=== PATIENT | female | born 1995 | race Caucasian/White ===

== ENCOUNTER 2017-12-19 21:20 | Emergency (ER) | payer BC ==
--- NOTE | 2017-12-19 21:32 | EDPHY ---
H & P Stated Complaint: fall earlier now ADAN Time Seen by Provider: 12/19/17 21:32 HPI/ROS: HPI CHIEF COMPLAINT: Headache, hit head HISTORY OF PRESENT ILLNESS: 22-year-old female, otherwise healthy denies any significant medical history presents emergency room with a global headache. Patient states she was at work today she bent over to pick something up and when she stood up hit the back of her head on a desk. Specifically she has been nauseous, she did have an episode of vomiting at home. Complains of a global throbbing headache. Denies neck pain. Denies blurry vision or double vision. Denies chest pain or shortness of breath. No fever. She has not take anything for pain. Past Medical History: Denies significant medical history Past Surgical History: Denies significant surgical history Social History: Denies daily use drugs alcohol tobacco. Family History: Noncontributory ROS REVIEW OF SYSTEMS: 10 Systems were reviewed and negative with the exception of the elements mentioned in the history of present illness. Exam Constitutional appears well nontoxic no acute distress triage nursing summary reviewed, vital signs reviewed, awake/alert. Eyes normal conjunctivae and sclera, EOMI, PERRLA. HENT normal inspection, atraumatic, moist mucus membranes, no epistaxis, neck supple/ no meningismus, no raccoon eyes. Respiratory clear to auscultation bilaterally, normal breath sounds, no respiratory distress, no wheezing. Cardiovascular rate normal, regular rhythm, no murmur, no edema, distal pulses normal. Gastrointestinal soft, non-tender, no rebound, no guarding, normal bowel sounds, no distension, no pulsatile mass. Genitourinary no CVA tenderness. Musculoskeletal no midline vertebral tenderness, full range of motion, no calf swelling, no tenderness of extremities, no meningismus, good pulses, neurovascularly intact. Skin pink, warm, & dry, no rash, skin atraumatic. Neurologic unremarkable neurological exam awake, alert and oriented x 3, AAOx3 , moves all 4 extremities equally, motor intact, sensory intact, CN II-XII intact, normal cerebellar, normal vision, normal speech. Psychiatric normal mood/affect. Heme/Lymph/Immune no lymphadenopathy. Differential Diagnosis: Includes but is not limited to in a particular order intracranial bleed, skull fracture, soft tissue injury, scalp hematoma club closed head injury, concussion Medical Decision Making: Plan for this patient 1 g of Tylenol be given for pain control, 800 mg ibuprofen for pain control, Zofran 4 mg for nausea, CT scan head without contrast for acute traumatic injury. Re-evaluation: CT scan head without contrast will be obtained due to head strike with vomiting and ongoing headache. CT scan head without contrast called to me by Dr. Castillo. Negative for acute traumatic injury. 2300: Patient re-evaluated resting comfortably no acute distress. Normal neurological exam. Feels better with Tylenol Motrin. Not vomiting. Neurological exam unremarkable. Safe for discharge. Return precautions discussed Source: Patient - Personal History LMP (Females 10-55): 8-14 Days Ago Current Tetanus/Diphtheria Vaccine: Unsure Current Tetanus Diphtheria and Acellular Pertussis (TDAP): Unsure - Medical/Surgical History Hx Asthma: No Hx Chronic Respiratory Disease: No Hx Diabetes: No Hx Cardiac Disease: No Hx Renal Disease: No Hx Cirrhosis: No Hx Alcoholism: No Hx HIV/AIDS: No Hx Splenectomy or Spleen Trauma: No Other PMH: Depression [facility] - Social History Smoking Status: Never smoked Constitutional: Initial Vital Signs Temperature (C) 37.2 C 12/19/17 21:27 Heart Rate 85 12/19/17 21:27 Respiratory Rate 16 12/19/17 21:27 Blood Pressure 117/72 12/19/17 21:27 O2 Sat (%) 96 12/19/17 21:27 O2 Delivery Mode Room Air Allergies/Adverse Reactions: gluten Allergy (Verified 02/22/15 08:07) Home Medications: Medication Instructions Recorded Amoxicillin 02/22/15 Ondansetron Odt [Zofran Odt] 4 mg PO Q4PRN #6 tab 02/22/15 PRILOSEC 02/22/15 Ibuprofen [Motrin (*)] 800 mg PO Q6-8PRN #10 tab 12/19/17 Ondansetron HCl [Zofran] 4 mg PO Q4-6PRN PRN #10 tablet 12/19/17 Medical Decision Making - Data Points Medications Given: Discontinued Medications Acetaminophen (Tylenol) 1,000 mg PO EDNOW ONE Stop: 12/19/17 21:36 Last Admin: 12/19/17 21:39 Dose: 1,000 mg Ibuprofen (Motrin) 800 mg PO EDNOW ONE Stop: 10/05/18 21:36 Last Admin: 12/19/17 21:39 Dose: 800 mg Ondansetron HCl (Zofran Odt) 4 mg PO EDNOW ONE Stop: 12/19/17 21:36 Last Admin: 12/19/17 21:39 Dose: 4 mg Departure - Departure Disposition: Home, Routine, Self-Care Clinical Impression: Head injury Qualifiers: Encounter type: initial encounter Qualified Code(s): S09.90XA - Unspecified injury of head, initial encounter Concussion Qualifiers: Encounter type: initial encounter Loss of consciousness presence/duration: without LOC Qualified Code(s): S06.0X0A - Concussion without loss of consciousness, initial encounter Condition: Good Instructions: Concussion (ED), Head Injury (ED) Additional Instructions: 1. Take it easy over the next 2-3 days. 2. Drink lots of fluids. 3. Low stimulus environment 4. Return emergency room if there is worsening symptoms questions or concerns. 5. Follow up with her PCP/concussion specialist. Referrals: KRISTY ELDER [Primary Care Provider] - As per Instructions Sharyn Romero MD [Medical Doctor] - As per Instructions Prescriptions: Ibuprofen [Motrin (*)] 800 mg PO Q6-8PRN #10 tab Ondansetron HCl [Zofran] 4 mg PO Q4-6PRN PRN #10 tablet PRN Reason: Nausea/Vomiting, Use 1st
[2017-12-19] MEDS ORDERED: ACETAMINOPHEN 500 MG TAB PO ONE (21:35)
[2017-12-19] MEDS ORDERED: IBUPROFEN 800 MG TAB PO ONE (21:35)
[2017-12-19] MEDS ORDERED: ONDANSETRON DISINTEGRATING 4 MG TAB PO ONE (21:35)
[2017-12-19 23:01] VITALS: BP 127/73
[2017-12-19] MEDS ORDERED: NS 1,000 ML IV ONE (23:55)
== END 2017-12-19 23:45 | disposition home or self-care (01) ==
DX: S06.0X0A Concussion without loss of consciousness, initial encounter (principal); E86.9 Volume depletion, unspecified; W22.8XXA Striking against or struck by other objects, initial encounter; Y99.0 Civilian activity done for income or pay